=== PATIENT | male | born 1950 | race Caucasian/White ===

== ENCOUNTER 2016-08-15 15:36 | Inpatient (IN) | payer OTHER ==
[~2016-08-15] VITALS: Ht 175.3 cm; Wt 78.9 kg
--- NOTE | ~2016-08-15 | PR ---
[place], [place] PROGRESS NOTE NAME: GREG MCKEON [facility] #: [id number] UNIT #: [id number] ROOM: 512 DOCTOR: VERNA MI MD,CORNELL BIRTHDATE: [birth year] DOS: 08/16/2016 PULMONARY FOLLOWUP NOTE SUBJECTIVE: The patient has been noted comfortable at this time, resting on the bed. The chest pain of the patient has been noted to improve. Shortness of breath was also resolving. He was continued on antibiotics, bronchodilators, and oxygen supplementation and other medical treatment as previously. Chest tube remains to suction. There was no air leak for this patient noted at the present time. OBJECTIVE: VITAL SIGNS: For the patient which has been recorded showed normal temperature, respiratory rate 22, heart rate of 96. The blood pressure was 142/90. The pulse oxygen saturation of the patient recorded on 4 L nasal cannula as 90% to 92% saturation. HEENT: Examination shows head was atraumatic. Eyes nonicterus. NECK: Supple. CARDIOVASCULAR SYSTEM: S1, S2 audible. LUNGS: Noted with general reduction in the breath sounds with reduction of wheezing on the left side. ABDOMEN: Soft, flat, nontender. LABORATORY DATA AND DIAGNOSTIC STUDIES: CBC this morning was noted as 95% segmented neutrophils with 3% lymphocytes, remaining CBC normal. Chest x-ray of the patient done this morning showed lungs remain expanded. The patient has chest tube placed in the left lower hemithorax. CT scan of the chest that I ordered for this patient this morning personally reviewed shows severe bullous emphysema. The patient noted large bleb in the right upper lung and other areas of the right lung. Acute infiltration also noted in the left lower lobe. IMPRESSION: 1. Spontaneous pneumothorax with severe advanced bullous emphysematous lung disease right side with pneumothorax, currently the patient's chest tube has been noted in place. Small subcutaneous emphysema noted not uncommon with the current chest tube in place. 2. Acute on chronic hypoxic respiratory failure as well. Pneumonia would be considered gram-positive or for patient community-acquired for this patient, which has been treated with oral doxycycline and IV Rocephin. PLAN OF TREATMENT: Continue Solu-Medrol, bronchodilators, and antibiotics. The patient would be recommended about transfer to the [facility] in [place], [place], for this patient for further recommendation and management. Minimal pneumothorax of the patient remaining was seen on the CT scan of the chest only, not visible on the chest x-ray. The air leak cannot be completely excluded because of the current findings. The assessment and management and transfer recommendations has been discussed with the patient personally on the phone with primary care attending of this patient. [place], [place] PROGRESS NOTE NAME: GREG MCKEON UNIT #: [id number] ROOM: [facility] DOCTOR: CORNELL BLACKWOOD MD BIRTHDATE: [birth year] CORNELL GILLESPIE MD CM:IRON [id number] CORNELL MI MD 08/17/16 1256 interface
--- NOTE | ~2016-08-15 | CON ---
[place], [place] REPORT OF CONSULTATION [id number] UN[facility] #: [id number] ROOM: 512 DOCTOR: VERNA MI MDCORNELL BIRTHDATE: [birth year] DOS: 08/15/2016 REASON FOR CONSULTATION: The patient with acute spontaneous pneumothorax. HISTORY OF PRESENT ILLNESS: A 66-year-old white male known to me with past history of advanced bullous emphysema, COPD, and chronic hypoxic respiratory failure, presented to the office. The patient was noted with symptoms of increased shortness of breath for the past couple of days. He was also noted symptoms of wheezing and cough. The patient was seen in the office. The patient was examined. The chest x-ray was obtained, which showed evidence of acute pneumothorax in the right side of the chest. The patient has been immediately hospitalized under the hospitalist services as I made the arrangement for that. The patient denies symptoms of hemoptysis or any chest trauma. REVIEW OF SYSTEMS: CONSTITUTIONAL: He does complain of fatigue and tiredness. Denies symptoms of fever or chills. EYES: Denies any burning, redness, or tenderness. EARS, NOSE, THROAT SYMPTOMS: No sore throat, hoarseness, otalgia, postnasal drainage. CARDIOVASCULAR: Denies anginal pain, edema or pain of the lower extremities. GASTROINTESTINAL: Denies nausea, vomiting, diarrhea, abdominal pain, hematemesis, melena, or hematochezia. GENITOURINARY: Denies dysuria, suprapubic pain, hematuria. MUSCULOSKELETAL: Denies acute joint pain, redness, or tenderness. SKIN: No lesions or rashes. CENTRAL NERVOUS SYSTEM: Denies dizziness, headache, diplopia or syncopal episodes. Remaining systems were reviewed with the patient, they were noted all negative. PAST MEDICAL HISTORY: Severe bullous emphysema and centrilobular emphysema of the patient as well and acute chronic hypoxic respiratory failure, use of oxygen 4 liter nasal cannula. History of recurrent right-sided pneumothorax. PAST SURGICAL HISTORY: 1. Facetectomy. 2. Past chest tube insertion for management of pneumothorax in the right side in the past many years ago. SOCIAL HISTORY: The patient lives at home. He has been noted with past tobacco use. The patient in the past, which has been discontinued many years ago. He has worked in the [employer] several years until his group home. FAMILY HISTORY: Noted noncontributory. HOME MEDICATIONS: Noted as use of Daliresp, Symbicort HFA inhaler, vitamin B12, multivitamin, omega 3, and Spiriva, albuterol sulfate 2.5 mg nebulizer q.4 hours p.r.n. for shortness of breath. [place], [place] REPORT OF CONSULTATION NAME: GREG MCKEON UNIT #: [id number] ROOM: [facility] DOCTOR: CORNELL BLACKWOOD MD BIRTHDATE: [birth year] DRUG ALLERGY HISTORY: The patient was noted as allergy to the CODEINE and PHOSPHATE. PHYSICAL EXAMINATION: GENERAL: A 66-year-old male who has been currently noted awake and alert without any distress. Height of 5 feet 9 inches, weight of 174 pounds. VITAL SIGNS: For the patient which has been recorded showed the temperature noted normal, respiratory rate 28, heart rate 120, sinus tachycardia, blood pressure 130/89. HEENT: Examination shows head was atraumatic. Eyes nonicterus. NECK: Supple. LUNGS: Noted absent breath sounds on the right chest auscultation, diffuse expiratory wheezing noted. Moderate decreased breath sounds on the left side of the lung. There were no subcutaneous emphysema. CARDIOVASCULAR: S1, S2 is audible. ABDOMEN: Noted soft, nontender, bowel sounds present. CENTRAL NERVOUS SYSTEM: Cranial nerves 2 through 12 intact. No focal deficit. MUSCULOSKELETAL: The patient was noted without any deformities. SKIN: Showed no lesions or rashes. MUSCULOSKELETAL: No obvious deformities. LABORATORY DATA: Chest x-ray that was done in my office shows evidence of moderate sized pneumothorax on the right side with incomplete collapse of the right lung, most likely related to underlying severe emphysema. The left lung was noted clear of any acute pulmonary infiltration. IMPRESSION: 1. The patient with history of bullous emphysema of the patient, which was known previously, currently noted with acute spontaneous pneumothorax with acute on chronic hypoxic respiratory failure. 2. Tachycardia secondary acute exacerbation of chronic obstructive pulmonary disease as well. 3. Past history of nicotine abuse, which has been discontinued many years ago. PLAN OF TREATMENT: The patient has been currently admitted to the hospital. Chest tube insertion will be done at the bedside on the right side of the chest. Labs for the patient has been ordered. The patient will be receiving IV Solu-Medrol, bronchodilators as well and continues his home medications. Pain medication will be given as well. Usual care, other supportive therapy, plan of management and care. Supportive treatment. Usual medical management. DVT prophylaxis. Thanks for allowing me participate in the care of this patient. [place], [place] REPORT OF CONSULTATION NAME: GREG MCKEON UNIT #: [id number] ROOM: 512 DOCTOR: CORNELL BLACKWOOD MD BIRTHDATE: [birth year] CORNELL GILLESPIE MD CM:CONSTR:REPORT OF CONSULTATION 1723 08/16/16 0232 interface
--- NOTE | ~2016-08-15 | PROC NOTE ---
[place], [place] PROCEDURE NOTE NAME: GREG MCKEON [facility] #: [id number] UNIT #: [id number] ROOM: 512 DOCTOR: CORNELL BLACKWOOD MD BIRTHDATE: [birth year] DOS: 08/15/2016 PROCEDURE: Chest tube thoracostomy. PREOPERATIVE DIAGNOSIS: The patient with right-sided spontaneous pneumothorax. POSTOPERATIVE DIAGNOSIS: Insertion of the chest tube #20 Persian for this patient without any difficulty of the patient in the right pleural space. PROCEDURE DESCRIPTION: Informed consent obtained for the patient. The skin was cleaned with chlorhexidine solution. Chest tube was placed in the mid axillary line for this patient. Local anesthetic was administered on the skin and intercostal space. During admission of the local anesthetic of the patient, the right pleural space was entered. The free air of this patient was aspirated. After that, large bore needle entered into the right pleural space. Guidewire threaded through the needle into the pleural space for this patient. Needle was removed leaving the guidewire in place. A plastic dilator was used to enlarge to incision up to 26 in size. A 24-inch Persian chest tube of the patient inserted by the Seldinger technique into the right pleural space without any difficulty. Chest tube was connected to the suction, which has been noted with fluctuation for this patient off the fluid level in the pleurovac. Chest tube will be continued to be connected to the suction. Chest x-ray of the patient was ordered for the patient. Preliminary review of the patient's chest x-ray of the patient shows reexpansion of the lung. A daily chest x-ray of the patient will be ordered. The chest tube was connected to suction for the patient to keep the lungs expanded to resolve any air leak. CORNELL GILLESPIE MD CM:PROCNOTE:PROCEDURE NOTE [phone] CORNELL MI MD
--- NOTE | ~2016-08-15 | PR ---
[place], [place] PROGRESS NOTE NAME: GREG MCKEON UNIT #: [id number] ROOM: 512 DOCTOR: CORNELL BLACKWOOD MD BIRTHDATE: [birth year] DOS: 08/17/2016 PULMONARY PROGRESS NOTE SUBJECTIVE: He was complaining of some symptoms of shortness of breath. Denies symptoms of acute chest pain. The chest pain has been noted well controlled. Denies symptoms of hemoptysis. The cough has been noted mild. The wheezing was described intermittently. OBJECTIVE: VITAL SIGNS: The patient's blood pressure was noted as 120/80, heart rate of 105, respiratory rate 20 with a normal temperature. The intake for the patient is 4000 mL, the output was 2000 mL. The pulse oxygen saturation on 4 L nasal cannula 97% saturation. HEENT: Showed no new change. Head was atraumatic. CARDIOVASCULAR SYSTEM: S1, S2 is audible. LUNGS: The patient was noted with moderate decreased breath sounds noted with expiratory wheezing in the left lung. ABDOMEN: Soft, nontender. LABORATORY DATA: The patient's lactic acid of the patient that was done yesterday by primary care attending was mildly elevated and noted normal follow up lactic acid this morning. Chest x-ray of the patient that was reviewed the patient shows severe bullous emphysema of the patient noted without any progression of subcutaneous pneumothorax. Chest tube remains in place. The lung remained expanded. IMPRESSION: 1. The patient with acute left lower lobe pneumonia for this patient with spontaneous pneumothorax, large bullous emphysema of the patient on the right side. Chest tube in place at the present time. 2. Acute exacerbation of chronic obstructive pulmonary disease as well. PLAN OF TREATMENT: Continue antibiotics, bronchodilators, oxygen supplementation, pain management and other treatment. The patient was awaiting for a bed for transfer to the [facility] for this patient at this time from yesterday. In the meantime, we will continue present management. Usual care. Supportive therapy, plan of care. [place], [place] PROGRESS NOTE NAME: GREG MCKEON UNIT #: [id number] ROOM: 512 DOCTOR: CORNELL BLACKWOOD MD BIRTHDATE: [birth year] CORNELL GILLESPIE MD CM:PNTRANS [phone] CORNELL MI MD 08/18/16 0511 interface
[~2016-08-15 15:36] MED LIST: B12100 MC1 PO; CENTRUM SILVER1 EACH PO; CIPROFLOXACIN500 MG PO; CLARITIN10 MG PO; DALI500T PO; DOXYCYCLINE100 M3 PO; FISH OIL500 M1 PO; KEFLEX500 MG PO; PREDNISONE10 MG PO; SPIRIVA18 MCG PO; SYMBICORT1 AE1 INH; VITAMIN D1000 IU PO; [UNRECOGNIZED DRUG - OTHER] PO
[2016-08-15 16:00] VITALS: BP 130/89
[2016-08-15] MEDS ORDERED: BUPROPION HYDR100 M1 PO (17:44)
[2016-08-15] MEDS ORDERED: TRAZODONE150 MG PO (17:44)
[2016-08-15] MEDS ORDERED: GUAIFENESIN200 MG PO (17:45)
[2016-08-15 17:48] LABS: BASO # 0.1 10*3/uL (0.0-0.1); BASO % 0.5 % (0.0-1.0); EOS # 0.2 10*3/uL (0.0-0.4); EOS % 1.4 % (1.0-4.0); HEMATOCRIT 47.7 % (42.0-52.0); HEMOGLOBIN 15.4 g/dl (14.0-18.0); LYMPH # 1.4 10*3/uL (1.3-4.4); LYMPH % 12.9 % (27.0-41.0); MEAN CELL VOLUME 94.5 fl (80.0-94.0); MEAN CORPUSCULAR HGB 30.5 pg (27.0-31.0); MEAN CORPUSCULAR HGB CONC 32.3 g/dl (33.0-37.0); MEAN PLATELET VOLUME 9.6 fl (9.6-12.3); MONO # 0.9 10*3/uL (0.1-1.0); NEUT # 8.4 10*3/uL (2.3-7.9); NEUT % 76.8 % (47.0-73.0); PLATELET COUNT AUTOMATED 208 10*3/uL (130-400); RED BLOOD COUNT 5.05 10*6/uL (4.50-5.90); WHITE BLOOD COUNT 10.9 10*3/uL (4.8-10.8)
[2016-08-15 17:58] LABS: INTERNATIONAL NORM RATIO 0.9 (2.0-3.5)
[2016-08-15 18:03] LABS: ALBUMIN 3.4 gm/dl (3.1-4.5); ALKALINE PHOSPHATASE 117 U/L (45-117); BILIRUBIN, TOTAL 0.3 mg/dl (0.2-1.0); BUN 20 mg/dl (7-24); CARBON DIOXIDE 31 mmol/L (21-32); CHLORIDE 104 mmol/L (98-107); EST GLOM FILT AFRICAN AMERICAN > 60 ml/min; GLUCOSE 94 mg/dL (65-99); MAGNESIUM 2.3 mg/dL (1.5-2.1); POTASSIUM 4.5 mmol/L (3.5-5.1); SGOT/AST 16 IU/L (3-35); SGPT/ALT 28 U/L (12-78); SODIUM 142 mmol/L (136-145); TOTAL PROTEIN 7.2 gm/dL (6.4-8.2)
[2016-08-15 19:19] LABS: VITAMIN D, 25-HYDROXY 45.1 ng/mL (30-100)
[2016-08-15 19:26] LABS: FOLIC ACID > 24.00 ng/mL (>5.38)
[2016-08-15 20:00] VITALS: BP 124/88
[2016-08-16] VITALS: BP 127/84
[2016-08-16 05:57] LABS: HEMATOCRIT 46.3 % (42.0-52.0); HEMOGLOBIN 15.3 g/dl (14.0-18.0); MEAN CELL VOLUME 93.5 fl (80.0-94.0); MEAN CORPUSCULAR HGB 30.9 pg (27.0-31.0); MEAN PLATELET VOLUME 9.9 fl (9.6-12.3); PLATELET COUNT AUTOMATED 197 10*3/uL (130-400); RED BLOOD COUNT 4.95 10*6/uL (4.50-5.90); WHITE BLOOD COUNT 5.5 10*3/uL (4.8-10.8)
[2016-08-16 06:42] LABS: LYMPHOCYTE # 0.2 10*3/uL (1.3-4.4); MONOCYTE # 0.1 10*3/uL (0.1-1.0); NEUTROPHIL # 5.2 10*3/uL (2.3-7.9); NEUTROPHILS 95 % (47-73); PLATELET SUFFICIENCY NORMAL (NORMAL); TOTAL CELLS COUNTED 100 #CELLS
[2016-08-16 08:00] VITALS: BP 142/90
[2016-08-16 12:00] VITALS: BP 127/82
[2016-08-16 16:00] VITALS: BP 124/89
[2016-08-16 19:43] LABS: LA>2 REFLEX 2 HR DRAW NOW
[2016-08-16 19:59] LABS: LA>2 RFLX FOLLOW UP AT 2 HRS 2.3 mmol/L (0.4-2.0)
[2016-08-16 20:00] VITALS: BP 142/84; BP 143/84
[2016-08-16 21:52] LABS: LA>2 REFLEX 4 HR DRAW NOW
[2016-08-17] VITALS: BP 123/85
[2016-08-17 08:00] VITALS: BP 120/80; BP 154/84
[2016-08-17 12:00] VITALS: BP 149/89
[2016-08-17 16:00] VITALS: BP 152/85
== END 2016-08-17 17:45 | disposition short-term general hospital (02) | DRG 871 ==
LOC: 5E 15:36
PROVIDERS: Internal Medicine Hospice and Palliative Medicine
PROC: 0W9930Z Drainage of Right Pleural Cavity with Drainage Device, Percutaneous Approach (ICD-10-PCS; principal; 2016-08-15)
DX: A41.9 Sepsis, unspecified organism (principal); J96.21 Acute and chronic respiratory failure with hypoxia; J18.9 Pneumonia, unspecified organism; J93.83 Other pneumothorax; J44.1 Chronic obstructive pulmonary disease with (acute) exacerbation; J44.0 Chronic obstructive pulmonary disease with (acute) lower respiratory infection; E83.41 Hypermagnesemia; D75.89 Other specified diseases of blood and blood-forming organs; F41.1 Generalized anxiety disorder; E53.8 Deficiency of other specified B group vitamins; G47.00 Insomnia, unspecified; Z87.891 Personal history of nicotine dependence; Z82.5 Family history of asthma and other chronic lower respiratory diseases; Z80.1 Family history of malignant neoplasm of trachea, bronchus and lung; Z88.6 Allergy status to analgesic agent; Z79.899 Other long term (current) drug therapy; Z99.81 Dependence on supplemental oxygen